=== PATIENT | female | born 1960 | race Hispanic/Latino ===

== ENCOUNTER 2017-11-18 15:06 | Outpatient (CLI) | payer BC, OTHER | END 2017-11-18 15:07 | disposition home or self-care (01) | LOC: LABHHL 15:06 | PROVIDERS: ATTEND Specialist | DX: N63.20 Unspecified lump in the left breast, unspecified quadrant (principal); R92.0 Mammographic microcalcification found on diagnostic imaging of breast; I10 Essential (primary) hypertension; J45.909 Unspecified asthma, uncomplicated; D64.9 Anemia, unspecified | CPT/HCPCS: 88112 ==

== ENCOUNTER 2018-06-14 08:46 | Outpatient (CLI) | payer BC ==
--- NOTE | 2018-06-14 10:27 | Ultrasound Report ---
LEFT BREAST ULTRASOUND: 06/14/18 08:46:00 CLINICAL: Abnormal mammogram. COMPARISON: 06/02/18 FINDINGS: Ultrasound of the left breast(including all four quadrants and the retroareolar area) was performed and demonstrated several benign cysts. Contiguous cysts 1 o'clock 4 cm from the nipple measure 1.0 x 1.2 x 0.8 cm and 0.9 x 0.5 x 0.8 cm. These contiguous cysts appear to correlate with the mammographic asymmetry on the diagnostic mammogram. No solid mass or shadowing. Ultrasound of the left axilla demonstrated a benign lymph node with central fat measuring 1.3 x 0.8 x 1.0 cm. IMPRESSION: Benign cysts left breast. BI-RADS 2 - - Benign RECOMMENDATION: Routine mammographic screening. She would be due for bilateral screening in October 2018.
== END 2018-06-14 08:47 | disposition home or self-care (01) ==
LOC: SPVWC 08:46
PROVIDERS: ATTEND Surgery
DX: N60.02 Solitary cyst of left breast (principal); I10 Essential (primary) hypertension; J45.909 Unspecified asthma, uncomplicated; E66.9 Obesity, unspecified; D64.9 Anemia, unspecified